=== PATIENT | male | born 1950 | race Caucasian/White ===

== ENCOUNTER 2017-06-02 19:10 | Inpatient (IN) | payer OTHER ==
[~2017-06-02] VITALS: Ht 165.1 cm; Wt 86.8 kg
[~2017-06-02 19:10] MED LIST: AMLO-110 PO; FLUO20CA37 PO; MULTTAB58 PO; NAPR-201 PO
[2017-06-02 20:25] VITALS: BP 144/87; PULSE 63; TEMP 36.3; O2SAT 94; Ht 165.1 cm; Wt 86.8 kg
[2017-06-02] MEDS ORDERED: INDO-22 PO (20:54)
[2017-06-02] MEDS ORDERED: FLUO20CA35 PO (20:54)
[2017-06-02] MEDS ORDERED: CHOL20007 PO (20:54)
[2017-06-02] MEDS ORDERED: CALC-393 (20:54)
[2017-06-02] MEDS ORDERED: PANT40TA PO (20:54)
[2017-06-02] MEDS ORDERED: ALUMINUM/MAGNESIUM/SIMETH (MAALOX MAX) 30 ML UDC PO PRN (21:00)
[2017-06-02] MEDS ORDERED: ACETAMINOPHEN 325 MG TAB PO PRN (21:00)
[2017-06-02] MEDS ORDERED: PHARMACIST DISCHARGE MED REC CONSULT PRN (21:00)
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
[2017-06-02 21:26] LABS: MEAN CELL VOLUME 88.4 fL (80-100); MEAN CORPUSCULAR HEMOGLOBIN 30.1 pg (25-34); MEAN CORPUSCULAR HGB CONC 34.1 g/dl (32-36); MEAN PLATELET VOLUME 9.3 fL (7.4-10.4); PLATELET COUNT 267 K/uL (130-400); RED CELL DISTRIBUTION WIDTH CV 13.2 % (11.5-14.5); RED CELL DISTRIBUTION WIDTH SD 42.8 fL (36.4-46.3); WHITE BLOOD COUNT 8.58 K/uL (4.8-10.8)
[2017-06-02 21:40] LABS: INR 0.9 (0.9-1.1)
[2017-06-02 21:43] LABS: ALBUMIN 3.5 gm/dl (3.4-5.0); ALT/SGPT 22 U/L (12-78); AST/SGOT 19 U/L (15-37); BLOOD UREA NITROGEN 19 mg/dl (7-18); CALCIUM 8.9 mg/dl (8.5-10.1); CARBON DIOXIDE 27 mmol/L (21-32); CREATININE 1.05 mg/dl (0.60-1.40); GLUCOSE 98 mg/dl (70-99); POTASSIUM 3.7 mmol/L (3.5-5.1); SODIUM 136 mmol/L (136-145)
[2017-06-02 21:48] LABS: ALKALINE PHOSPHATASE 59 U/L (45-117); TOTAL PROTEIN 7.4 gm/dl (6.4-8.2)
--- NOTE | 2017-06-02 21:54 | DIAGNOSTIC IMAGING REPORT ---
CERVICAL SPINE 2 OR 3 VIEWS CLINICAL HISTORY: NECK PAIN COMPARISON STUDY: None. FINDINGS: The cervical spine is visualized from C1 through the superior endplate of T1. There is 1.5 mm of retrolisthesis of C4 on C5 and C5 on C6. Mild disc space narrowing C4-C5. Moderate disc space narrowing at C5-C6 and C6-C7 with small endplate osteophytes. No fractures identified within the cervical spine. The C1-C2 interval is intact. Prevertebral soft tissues are normal in thickness. Mild facet degenerative changes seen throughout the cervical spine. The odontoid is partially obscured but is likely intact. IMPRESSION: Degenerative changes within the cervical spine as described above. No fractures. Electronically signed by: Tomás Rogers M.D. 06/02/2017 9:53 PM Dictated Date/Time: 06/02/2017 9:51 PM
[2017-06-02] MEDS: HEPARIN SOD 5000 UNIT/0.5 ML CARP SQ SCH (22:45)
[2017-06-02 23:30] VITALS: BP 112/82; PULSE 65; TEMP 36.8; O2SAT 94
[2017-06-03] VITALS (7 sets, daily range): BP systolic 118–138; BP diastolic 77–82; PULSE 67–78; TEMP 36.5–37; O2SAT 94–96
[2017-06-03] MEDS: HEPARIN SOD 5000 UNIT/0.5 ML CARP SQ SCH ×2 (06:10→14:49)
[2017-06-03 06:32] LABS: BASO % 0.6 %; BASO ABS # 0.05 K/uL (0-0.2); EOS % 4.5 %; EOS ABS # 0.35 K/uL (0-0.5); HEMATOCRIT 41.7 % (42-52); HEMOGLOBIN 14.3 g/dL (14.0-18.0); IG# 0.01 K/uL (0.00-0.02); LYMPH % 28.2 %; LYMPH ABS # 2.17 K/uL (1.2-3.4); MEAN CORPUSCULAR HEMOGLOBIN 30.2 pg (25-34); MEAN CORPUSCULAR HGB CONC 34.3 g/dl (32-36); MEAN PLATELET VOLUME 9.3 fL (7.4-10.4); MONO % 6.8 %; MONO ABS # 0.52 K/uL (0.11-0.59); NEUT % 59.8 %; PLATELET COUNT 248 K/uL (130-400); RED CELL DISTRIBUTION WIDTH CV 13.3 % (11.5-14.5); RED CELL DISTRIBUTION WIDTH SD 42.7 fL (36.4-46.3)
[2017-06-03 07:04] LABS: CALCIUM 8.4 mg/dl (8.5-10.1); CREATININE 0.97 mg/dl (0.60-1.40); POTASSIUM 3.9 mmol/L (3.5-5.1)
[2017-06-03] MEDS ORDERED: FLUOXETINE HCL 20 MG CAP PO SCH (09:00)
[2017-06-03] MEDS ORDERED: AMLODIPINE BESYLATE 5 MG TAB PO SCH (09:00)
[2017-06-03] MEDS ORDERED: PANTOprazole SOD 40 MG TAB PO SCH (09:00)
[2017-06-03] MEDS ORDERED: ATORVASTATIN 40 MG TAB PO SCH (09:00)
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
--- NOTE | 2017-06-03 12:05 | ECHOCARDIOGRAM REPORT ---
*NOTICE TO RECEIVING CONSTITUTION PARTY AGENCY This information is strictly Confidential and protected under [place] law. [place] law prohibits you from making any further disclosure of this information unless further disclosure is expressly permitted by the written consent of the person to whom it pertains or is authorized by law. A general authorization for the release of medical or other information is not sufficient for this purpose. Hospital accepts no responsibility if the information is made available to any other person, INCLUDING THE PATIENT. Interpretation Summary * Name: BERTA DEXTER Study Date: 06/03/2017 09:28 AM BP: 118/78 mmHg * Patient Location: C.2E\S\E208\S\1 HR: 78 * : 1950 (M/d/yyyy) Gender: Male Height: 65 in * Age: 67 yrs Ethnicity: CA Weight: 191 lb * Ordering Physician: Jenna Hill * Referring Physician: Self * Performed By: Avinash Orellana RDCS * * Reason For Study: Ataxia * BSA: 1.9 m2 * -- Conclusions -- * The left ventricle is normal in size. * There is normal left ventricular wall thickness. * Ejection Fraction = 60-65%. * Left ventricular systolic function is normal. * The left ventricular wall motion is normal. * The right ventricle is normal in size and function. * The right ventricular systolic function is normal as assessed by tricuspid annular plane systolic excursion (TAPSE) (normal >1.5 cm). * Aortic valve sclerosis mild, without significant aortic valvular stenosis. * Right ventricular systolic pressure is normal. * Negative Bubble Study for right to left shunt Procedure Details * A complete two-dimensional transthoracic echocardiogram was performed (2D, M-mode, Doppler and color flow Doppler). * The study was technically difficult, but visualization was adequate with the administration of Definity ultrasound contrast. * A contrast injection of Definity was performed to improve assessment of LV function. * Contrast was injected into an intravenous site in the left arm. * One vial of Definity ultrasound contrast was diluted in normal saline to a total volume of 10 ml. A total of '2' ml of solution was administered during imaging. * Lot # [id number] of Definity utilized for procedure. * Expiration date . * The attending nurse who injected the contrast agent was ZELALEM Dover. * A saline contrast injection was performed to assess for cardiac shunting. * The attending nurse who injected the saline contrast was ZELALEM Dover. * The injection was performed through an intravenous line in the left arm. * A total of 10 cc of agitated saline was given. Left Ventricle * The left ventricle is normal in size. * There is normal left ventricular wall thickness. * Ejection Fraction = 60-65%. * Left ventricular systolic function is normal. * The left ventricular wall motion is normal. Right Ventricle * The right ventricle is normal in size and function. * The right ventricular systolic function is normal as assessed by tricuspid annular plane systolic excursion (TAPSE) (normal >1.5 cm). Atria * The left atrium is mildly dilated. * Right atrial size is normal. Mitral Valve * The mitral valve is normal. * There is trace mitral regurgitation. Tricuspid Valve * The tricuspid valve is not well visualized, but is grossly normal. * There is trace tricuspid regurgitation. * Right ventricular systolic pressure is normal. Aortic Valve * Aortic valve sclerosis mild, without significant aortic valvular stenosis. Pulmonic Valve * The pulmonic valve is not well seen, but is grossly normal. * Mild pulmonic valvular regurgitation. Great Vessels * Borderline aortic root dilatation. Pericardium/Pleural * There is no pericardial effusion. Great Vessels * Normal inferior vena cava diameter and respiratory variation suggests normal central venous pressure. Left Ventricular Diastolic Function * Grade I diastolic dysfunction, (abnormal relaxation pattern). MMode 2D Measurements and Calculations IVSd 0.95 cm IVSs 1.5 cm LVIDd 5.3 cm LVIDs 3.3 cm LVPWd 0.98 cm LVPWs 1.7 cm IVS/LVPW 0.97 FS 36.7 % EDV(Teich) 134.1 ml ESV(Teich) 45.6 ml EF(Teich) 66.0 % EDV(cubed) 147.1 ml ESV(cubed) 37.4 ml EF(cubed) 74.6 % % IVS thick 60.2 % % LVPW thick 72.8 % LV mass(C)d 190.3 grams LV mass(C)dI 98.1 grams/m\S\2 LV mass(C)s 204.8 grams LV mass(C)sI 105.6 grams/m\S\2 SV(Teich) 88.5 ml SI(Teich) 45.6 ml/m\S\2 SV(cubed) 109.7 ml SI(cubed) 56.6 ml/m\S\2 EPSS 0.36 cm Ao root diam 3.6 cm Ao root area 10.3 cm\S\2 ACS 1.7 cm LA dimension 4.4 cm LA/Ao 1.2 LVOT diam 1.9 cm LVOT area 2.9 cm\S\2 LVAd ap4 32.9 cm\S\2 LVLd ap4 8.3 cm EDV(MOD-sp4) 107.9 ml EDV(sp4-el) 110.5 ml LVAs ap4 18.0 cm\S\2 LVLs ap4 7.2 cm ESV(MOD-sp4) 39.3 ml ESV(sp4-el) 38.1 ml EF(MOD-sp4) 63.6 % EF(sp4-el) 65.5 % LVAd ap2 22.2 cm\S\2 LVLd ap2 7.6 cm EDV(MOD-sp2) 54.1 ml EDV(sp2-el) 54.9 ml LVAs ap2 12.2 cm\S\2 LVLs ap2 6.3 cm ESV(MOD-sp2) 18.8 ml ESV(sp2-el) 19.9 ml EF(MOD-sp2) 65.2 % EF(sp2-el) 63.7 % LVLd %diff -9.14 % EDV(MOD-bp) 77.3 ml LVLs %diff -13.70 % ESV(MOD-bp) 28.1 ml EF(MOD-bp) 63.7 % SV(MOD-sp4) 68.6 ml SI(MOD-sp4) 35.4 ml/m\S\2 SV(MOD-sp2) 35.3 ml SI(MOD-sp2) 18.2 ml/m\S\2 SV(MOD-bp) 49.2 ml SI(MOD-bp) 25.4 ml/m\S\2 SV(sp4-el) 72.4 ml SI(sp4-el) 37.3 ml/m\S\2 SV(sp2-el) 34.9 ml SI(sp2-el) 18.0 ml/m\S\2 Doppler Measurements and Calculations MV E max cecilia 70.1 cm/sec MV A max cecilia 77.1 cm/sec MV E/A 0.91 MV dec time 0.14 sec Ao V2 max 130.3 cm/sec Ao max PG 6.8 mmHg Ao max PG (full) 2.5 mmHg TEJAL(V,A) 2.3 cm\S\2 TEJAL(V,D) 2.3 cm\S\2 LV V1 max PG 4.3 mmHg LV V1 max 103.4 cm/sec TR max cecilia 238.4 cm/sec
[2017-06-03] MEDS ORDERED: GADAVIST IV PRN (14:00)
--- NOTE | 2017-06-03 14:24 | DIAGNOSTIC IMAGING REPORT ---
MRI OF THE BRAIN WITHOUT AND WITH IV CONTRAST CLINICAL HISTORY: Unexplained ataxia. History of prostate cancer. Possible stroke. COMPARISON STUDY: Head CT June 02, 2017. TECHNIQUE: Utilizing a 1.5 Geneva magnet and dedicated coil, multiplanar, multiecho imaging of the brain was performed pre and postcontrast administration. IV administration of 8 mL of Gadavist contrast was uneventful. FINDINGS: There are no foci of restricted diffusion. No acute intracranial hemorrhage, midline shift or mass effect is present. Ventricular system is unremarkable. Basilar cisterns are patent. There are no extra-axial collections. Flow-voids for the major intracranial vessels are present. There is no intracranial mass or pathologic enhancement. Numerous white matter T2 hyperintense foci suggest moderate small vessel disease. Calvarial signal is maintained. Orbits and sinuses are unremarkable. IMPRESSION: 1. No acute intracranial findings. 2. No evidence of metastatic disease. Electronically signed by: Andrez Eric M.D. 06/03/2017 2:22 PM Dictated Date/Time: 06/03/2017 2:18 PM
--- NOTE | 2017-06-03 14:35 | DIAGNOSTIC IMAGING REPORT ---
MRI OF THE LUMBAR SPINE WITH AND WITHOUT CONTRAST CLINICAL HISTORY: Unexplained ataxia. Low back pain. Prostate cancer. COMPARISON STUDY: No previous studies for comparison. TECHNIQUE: Utilizing a 1.5 Geneva magnet and dedicated coil, multiplanar, multiecho imaging of the lumbar spine was performed before and after uneventful IV administration of 8 mL of Gadavist. FINDINGS: For purposes of numbering on this exam, the L5-S1 disc space is assigned to axial image 23 of 25. Vertebral body heights are maintained. There is no evidence for fracture or suspicious marrow replacement. Discogenic changes at the L2-L3 level are noted. There is no intracanalicular mass or fluid. The conus terminates at the upper L1 level. Paravertebral soft tissues are unremarkable. L1-2: The central canal and the neural foramen are patent. L2-3: There is disc bulge with a small superimposed central disc protrusion. There is facet arthrosis and ligamentous hypertrophy. The findings result in moderate narrowing of the central canal and lateral recesses with mild narrowing of both neural foramen. L3-4: There is facet arthrosis with ligamentous hypertrophy. An 8 mm synovial cyst within the right lateral aspect of the canal is noted. There is mild narrowing of the right lateral recess and moderate narrowing of the right neural foramen. L4-5: There is disc space narrowing with disc bulge and a central disc protrusion with annular tear. There is facet arthrosis. There is mild narrowing of the central canal and lateral recesses with mild narrowing of both neural foramen. L5-S1: Central canal and neural foramen are patent. IMPRESSION: 1. No acute abnormality within the lumbar spine by MRI. 2. No evidence of metastatic disease within lumbar spine. 3. Moderate multilevel degenerative disc disease and facet arthrosis, pronounced at L2-L3 where disc bulge with superimposed disc protrusion, ligamentous hypertrophy and facet arthrosis result in moderate narrowing of the central canal and lateral recesses. Electronically signed by: Andrez Eric M.D. 06/03/2017 2:34 PM Dictated Date/Time: 06/03/2017 2:26 PM
[2017-06-03] MEDS ORDERED: KETOROLAC TROMETHAMINE 15 MG/ML VIAL ONE (14:43)
[2017-06-03] MEDS ORDERED: NURSING VERBAL MED ORDER ONE (14:45)
[2017-06-03] MEDS ORDERED: KETOROLAC TROMETHAMINE 30 MG/ML VIAL IV SCH (16:27)
[2017-06-03] MEDS ORDERED: KETOROLAC TROMETHAMINE 30 MG/ML VIAL ONE (16:38)
--- NOTE | 2017-06-03 17:31 | Discharge Instructions ---
Discharge Instructions Date of Service Jun 03, 2017. Admission Reason for Admission: Unexplained Ataxia Discharge Discharge Diagnosis / Problem: Ataxia Discharge Goals Goal(s): Improve function, Increase independence, Improve disease control Activity Recommendations Activity Limitations: per Instructions/Follow-up section . Instructions / Follow-Up Instructions / Follow-Up Mr. Weston, You came to [facility] for further workup for your symptoms of dizziness. The plan was of your hospital admission was to rule out serious causes of your dizziness and unsteadiness. With that said, it was decided to have you be seen by our neurologist and to have various images taken of your brain and spinal cord. The imaging yielded reassuring results. We did not see any signs of bleeding, stroke or mass on brain and spinal cord imaging that could explain the symptoms. At this point, your care can be managed in the outpatient. While we did not find the cause, at this point we have ruled out serious causes that would require hospitalization. The next step would be to look at other causes of the symptoms. There are various aliments which can effect the bodies balance mechanism. This balance center is in your inner ear. All these syndromes present with similar symptoms. We recommend the following; 1. Close follow up with you family medicine doctor 2. If symptoms persist for greater than two weeks, we recommend a consultation with a ear, nose and throat specialist 3. Caution with return to regular activity; including operating machinery or automobiles. If chronic symptoms persist, it would be beneficial to see a physical therapist to work on compensatory skills. Current Hospital Diet Patient's current hospital diet: Regular Diet Discharge Diet Recommended Diet: Regular Diet Pending Studies Studies pending at discharge: no Laboratory Results Hemoglobin A1c Test 06/02/17 21:10 Range/Units Lipid Panel Test 06/03/17 06:09 Range/Units Triglycerides Level 123 0-150 mg/dl Cholesterol Level 195 0-200 mg/dl HDL Cholesterol 61 mg/dl Cholesterol/HDL Ratio 3.2 LDL Cholesterol, Calculated 109 mg/dl Medical Emergencies . Who to Call and When: Medical Emergencies: If at any time you feel your situation is an emergency, please call 911 immediately. . Non-Emergent Contact Non-Emergency issues call your: Primary Care Provider . . "Provider Documentation" section prepared by Kaleb Figueroa. . VTE Core Measure Inpt VTE Proph given/why not?: Unfractionated heparin SQ
--- NOTE | 2017-06-03 18:37 | Discharge Summary ---
Discharge Summary Date of Service Jun 03, 2017. Discharge Summary Admission Date: Jun 02, 2017 at 19:46 Discharge Date: Jun 03, 2017 Discharge Disposition: Home Principal Diagnosis: Ataxia Immunizations: Have You Had Influenza Vaccine: Unknown History of Tetanus Vaccine?: Unknown History of Pneumococcal: Unknown History of Hepatitis B Vaccine: Unknown Discharge Exam Review of Systems: Constitutional: No fever, No chills Eyes: No worsening of vision, No diplopia Respiratory: No cough, No shortness of breath Cardiovascular: No chest pain, No palpitations Neurologic: + vertigo, + balance problems, No memory loss, No paralysis, No weakness, No numbness/tingling Endocrine: No fatigue Physical Exam: General Appearance: WD/WN, no apparent distress Respiratory/Chest: chest non-tender, lungs clear, normal breath sounds Cardiovascular: regular rate, rhythm, no edema, no murmur Extremities: no calf tenderness, no pedal edema Neurologic/Psychiatric: physical fitness trainer II-XII nml as tested, no motor/sensory deficits , alert, normal mood/affect, normal reflexes, oriented x 3, + abnormal cerebellar tests (positive romberg ) Hospital Course Mr. Weston came to [facility] after experiencing sensation of dizziness and unsteadiness on his feet for about 1 week. The patient was seen by his PCP and prescribed Meclizine with little effect. The patient denied weakness, numbness and tingling, but he did complain of DAWN. Patient had a positive Romberg on physical exam. The goals of hospital stay was to rule out life-threatening causes of ataxia; ischemia, hemorrhage, mass effect. Imaging included; CT head, MRI of the brain and spinal cord. Imaging was unremarkable. With this said, his symptoms are likely vestibular in origin. The patient was also seen by neurology who agreed with the assessment of possible inner ear pathology. The patient was advised to follow up with PCP in 2 weeks if the sx persist and would recommend ENT consultation at that point. Additional testing ordered; Lyme (negative) ECHO (normal). Occipital DAWN are likely 2/2 to muscle tension. Resident Physician Supervision Note: I interviewed and examined the patient. Discussed with Dr. Figueroa and agree with findings and plan as documented in the note. Any exceptions or clarifications are listed here: None Documented By: Domingo Bell feeling about the same dizzy/unsteady headache bad back of neck and up around head vitals noted nad breathing unlabored. suboccipitals L>R high tone/tender/ decreased ROM - inhibitory pressure - improved, pt tolerated well dizzy/unsteady - secondary w/u zero yield. 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 if doesn't improve over ~2wks then consider ENT eval for path such as meniere's (unlikely) or if family still concerned about lyme then could consider LP (atlhough seems low yield) headaches - appearing quite c/w tension headache. no bleed/tumor. no findings clinically c/w transformed migraine. OMT, ice/heat somatic dysfunction cervical region - OMT as above Total Time Spent: Greater than 30 minutes This includes examination of the patient, discharge planning, medication reconciliation, and communication with other providers. Discharge Instructions Please refer to the electronic Patient Visit Report (Discharge Instructions) for additional information. Additional Copies To Reggie Joyner M.D.
[2017-06-04 07:34] LABS: HEMOGLOBIN A1C 5.2 % (4.5-5.6)
== END 2017-06-03 17:49 | disposition home or self-care (01) | DRG 149 ==
LOC: C.2E 19:46
PROVIDERS: ADMIT Hospitalist; ATTEND Family Medicine
DX: H83.09 Labyrinthitis, unspecified ear (principal); G44.209 Tension-type headache, unspecified, not intractable; M99.01 Segmental and somatic dysfunction of cervical region; I10 Essential (primary) hypertension; F32.9 Major depressive disorder, single episode, unspecified; F17.220 Nicotine dependence, chewing tobacco, uncomplicated; Z51.81 Encounter for therapeutic drug level monitoring; Z79.899 Other long term (current) drug therapy; Z87.820 Personal history of traumatic brain injury; Z85.46 Personal history of malignant neoplasm of prostate; Z82.49 Family history of ischemic heart disease and other diseases of the circulatory system

== ENCOUNTER → 2017-09-26 | Outpatient (CLI) | payer OTHER ==
[~2017-09-26] MED LIST changes: +CALC-393; +CHOL20007 PO; +FLUO20CA35 PO; +INDO-22 PO; +PANT40TA PO
== END | disposition home or self-care (01) ==
LOC: C.LAB 15:42
PROVIDERS: ATTEND Urology
DX: C61 Malignant neoplasm of prostate (principal)